=== PATIENT | male | born 1955 | race Caucasian/White ===

== ENCOUNTER 2017-05-07 10:52 | Day surgery (SDC) | payer BC ==
[~2017-05-07 10:52] MED LIST: CHONDR SU A NA/HYALUR INTRAOC KIT (SURGICARE) ONE; EPINEPHRINE INJ/PF 1 MG/1 ML AMPULE ONE; KETOROLAC TROMETHAMINE 0.45% 4 DROP/0.4 ML DROPERETTE OD PRN; LIDOCAINE 1% INJ-PF (10 MG/ML) 30 ML SDV ONE; TOBRAMYCIN SULFATE/DEXAMETH OPH OINTMENT 3.5 GM ONE
[2017-05-07] MEDS ORDERED: TETRACAINE HCL 0.5% OPH SOLN 2 ML ONE (11:19)
[2017-05-07] MEDS ORDERED: POVIDONE-IODINE 5% OPH PREP SOLN 30 ML ONE (11:19)
[2017-05-07] MEDS ORDERED: LIDOCAINE 1%/EPINEPHRINE INJ 20 ML VIAL ONE (11:19)
[2017-05-07] MEDS: BESIFLOXACIN HCL 0.6% OPH SUSP 5 ML BOTTLE OD PRN ×3 (11:38→12:21)
[2017-05-07] MEDS: TETRACAINE HCL 0.5% OPH SOLN 0.6 ML DROPERETTE OD PRN ×3 (11:38→12:03)
[2017-05-07] MEDS ORDERED: MIDAZOLAM 2 MG/2 ML INJ ONE ×2 (11:47→12:10)
[2017-05-07] MEDS ORDERED: ONDANSETRON HCL INJ/PF 4 MG/2 ML SDV ONE (11:48)
[2017-05-07] MEDS ORDERED: FENTANYL CITRATE INJ/PF 100 MCG/2 ML AMPUL ONE (11:48)
== END 2017-05-07 13:11 | disposition home or self-care (01) ==
LOC: SC 10:52
PROVIDERS: ATTEND Ophthalmology
PROC: 08BSXZX Excision of Right Conjunctiva, External Approach, Diagnostic (ICD-10-PCS; principal; 2017-05-07 12:00)
DX: H11.441 Conjunctival cysts, right eye (principal); E78.00 Pure hypercholesterolemia, unspecified; M19.90 Unspecified osteoarthritis, unspecified site; R25.1 Tremor, unspecified; G89.29 Other chronic pain; M54.2 Cervicalgia; Z79.1 Long term (current) use of non-steroidal anti-inflammatories (NSAID); Z88.0 Allergy status to penicillin; Z79.899 Other long term (current) drug therapy
CPT/HCPCS: 88304 ×2; 68110; J2250; J3490 ×3; J3010; J2405; 140; J0171

== ENCOUNTER 2018-06-25 10:32 | Day surgery (SDC) | payer BC ==
[2018-06-25] MEDS ORDERED: DIPHENHYDRAMINE HCL 50 MG/ML VIAL ONE (11:24)
[2018-06-25] MEDS ORDERED: EPINEPHRINE INJ 1 MG/10 ML DISP.SYRIN ONE (11:24)
[2018-06-25] MEDS ORDERED: NALOXONE HCL INJ/PF 0.4 MG/1 ML SDV ONE (11:24)
[2018-06-25] MEDS ORDERED: GLUCAGON,HUMAN RECOMB 1 MG INJ ONE (11:24)
[2018-06-25] MEDS ORDERED: FLUMAZENIL INJ 0.5 MG/5 ML VIAL ONE (11:24)
[2018-06-25] MEDS ORDERED: FENTANYL CITRATE INJ/PF 100 MCG/2 ML AMPUL ONE (11:24)
[2018-06-25] MEDS ORDERED: ONDANSETRON HCL INJ/PF 4 MG/2 ML SDV ONE (11:24)
[2018-06-25] MEDS: MIDAZOLAM 2 MG/2 ML INJ ONE ×3 (11:45→11:51)
--- NOTE | 2018-06-25 12:13 | Operative Report ---
Operative Report DATE OF SURGERY: 06/25/18 Operative Report: The risks, benefits and alternatives of the procedure including the risk of bleeding, perforation requiring surgery have been explained to the patient in detail and informed consent has been obtained. Patient is placed in a left, lateral decubital position. Timeout was called. Propofol medication is administered. Rectal examination is done which did not reveal any masses, tears or fissures. An Olympus videoscope was introduced into the patient's rectum. The scope was then carefully advanced all the way to the cecum. The cecum was identified by the usual anatomical landmarks of the ileocecal valve as well as the appendiceal office. Photodocumentation was obtained. The scope was then sequentially pulled back via the various segments of the colon including the ascending colon, hepatic flexure, transverse colon, splenic flexure, descending colon and finally into the rectosigmoid portions of the colon. Retroflexion maneuver was performed. PREOPERATIVE DIAGNOSIS: Rectal bleeding. Personal history of polyps POSTOPERATIVE DIAGNOSIS: Diverticulosis without any evidence of diverticulitis. Internal hemorrhoids. Otherwise normal screening colonoscopy OPERATION: Diagnostic colonoscopy SURGEON: WALDEMAR RICHARDS ANESTHESIA: Moderate Sedation TISSUE REMOVED OR ALTERED: None. COMPLICATIONS: None. ESTIMATED BLOOD LOSS: As noted above. INTRAOPERATIVE FINDINGS: As noted above. PROCEDURE: Patient tolerated the procedure well. No immediate postprocedure complications are noted. Patient discharged in good condition. Discharge date 06/25/2018. Discharge diet: Regular. Discharge activity: Regular. 2-3-week follow-up to discuss findings. Patient is instructed to call the office or proceed to the emergency room should there be any further proximal questions.
[2018-06-25 14:19] VITALS: BP 123/93
== END 2018-06-25 12:58 | disposition home or self-care (01) ==
LOC: END 10:32
PROVIDERS: ATTEND Internal Medicine Gastroenterology
DX: K57.30 Diverticulosis of large intestine without perforation or abscess without bleeding (principal); K64.8 Other hemorrhoids; K62.5 Hemorrhage of anus and rectum; Z86.010 Personal history of colon polyps; Z79.899 Other long term (current) drug therapy
CPT/HCPCS: 45378; J2250; J3010; J0171; J1200; J1610; J2310; J2405; J3490